=== PATIENT | male | born 1955 | race Caucasian/White ===

== ENCOUNTER 2019-06-05 08:18 | Inpatient (IN) | payer MEDICARE ==
[~2019-06-05] VITALS: Ht 180.3 cm; Wt 103.9 kg
[~2019-06-05 08:18] MED LIST: AMLODIPINE BESYL5 MG PO; CO Q-10100 MG PO; FLAXSEED OIL1000 M1 PO; IPRAT-ALBUT 0.5-3 ML INH; LISINOPRIL40 MG PO; MAGNESIUM250 M1 PO; NEURONTIN300 MG PO; NORVASC10 MG PO; OMEPRAZOLE20 MG PO; POTASSIUM99 M1 PO; PULMICORT FLE180 MCG INH; SPIRIVA18 MCG INH; VENTOLIN HFA18 GM INH; VITAMIN B-12500 MCG PO
[2019-06-05] MEDS ORDERED: TORSEMIDE20 MG PO (08:44)
[2019-06-05] MEDS ORDERED: ALLERGY MEDICAT25 MG PO (08:44)
[2019-06-05] MEDS ORDERED: ESCITALOPRAM OX10 MG PO (08:45)
[2019-06-05] MEDS ORDERED: KLOR-CON M2020 MEQ PO (08:46)
[2019-06-05] MEDS ORDERED: METOPROLOL SUCC50 MG PO (08:47)
[2019-06-05] MEDS ORDERED: FOLIC ACID1 MG PO (08:49)
[2019-06-05] MEDS ORDERED: IPRAT-ALBUT 0.5-3 ML INH (08:53)
[2019-06-05] MEDS ORDERED: SPIRIVA18 MCG INH (08:54)
--- NOTE | 2019-06-05 11:12 | EKG ---
[facility] [address] [facility] [place] [address] Signed Normal sinus rhythm Right axis deviation Low voltage QRS Cannot rule out Anteroseptal infarct (cited on or before 15-SEP-2016) Abnormal ECG When compared with ECG of 09-MAR-2017 10:25, Significant changes have occurred Confirmed by RONAK WRIGHT DO ([id number]) on 06/05/2019 11:12:15 AM Electronically Signed By: RONAK WRIGHT DO 06/05/19 1112 PATIENT NAME: CINDY LITTLE SAFIA Electrocardiogram DATE OF : 53 PHYSICIAN: RONAK WRIGHT DO REPORT #: [id number] REPORT IS CONFIDENTIAL AND NOT TO BE RELEASED WITHOUT AUTHORIZATION
[2019-06-07] MEDS ORDERED: SEREVENT DISKU1 PUFF INH (13:32)
[2019-06-07] MEDS ORDERED: ALLERGY RELIE15.8 ML NAS (13:33)
[2019-06-11] MEDS ORDERED: SEREVENT DISKU1 PUFF INH (10:26)
[2019-06-11] MEDS ORDERED: TORSEMIDE20 MG PO (10:28)
[2019-06-11] MEDS ORDERED: ASPIR 8181 MG PO (10:28)
[2019-06-11] MEDS ORDERED: FOLIC ACID1 MG PO (10:46)
== END 2019-06-11 11:55 | disposition home or self-care (01) | DRG 291 ==
LOC: ED 08:18 → CCU 13:17 → MS 06-08 16:45
PROVIDERS: ADMIT Student in an Organized Health Care Education/Training Program
PROC: 5A09357 Assistance with Respiratory Ventilation, Less than 24 Consecutive Hours, Continuous Positive Airway Pressure (ICD-10-PCS; principal; 2019-06-05)
DX: I11.0 Hypertensive heart disease with heart failure (principal); J96.21 Acute and chronic respiratory failure with hypoxia; N17.9 Acute kidney failure, unspecified; E87.1 Hypo-osmolality and hyponatremia; I50.33 Acute on chronic diastolic (congestive) heart failure; I27.81 Cor pulmonale (chronic); R79.89 Other specified abnormal findings of blood chemistry; F17.200 Nicotine dependence, unspecified, uncomplicated; F10.20 Alcohol dependence, uncomplicated; I25.10 Atherosclerotic heart disease of native coronary artery without angina pectoris; I25.2 Old myocardial infarction; J44.9 Chronic obstructive pulmonary disease, unspecified; G89.4 Chronic pain syndrome; K59.00 Constipation, unspecified; E53.8 Deficiency of other specified B group vitamins; G47.33 Obstructive sleep apnea (adult) (pediatric); Z66 Do not resuscitate; Z88.5 Allergy status to narcotic agent; Z95.5 Presence of coronary angioplasty implant and graft; Z79.899 Other long term (current) drug therapy
CPT/HCPCS: 36415; 36600; 51702; 51703; 71045; 74176; 80048; 80053; 82550; 82607; 82746; 82803; 83605; 83735; 83880; 84100; 84484; 85025; 87040; 90662; 93005; 93010; 93306; 94640; 94660; 94667; 94668; 94760; 94761; 96374; 97116; 97162; 97165; 99291; 99406; J1120; J1650; J1940; J3475; J3490